=== PATIENT | female | born 1985 | race American Indian/Alaskan Native ===

== ENCOUNTER 2021-05-24 13:32 | Emergency (ER) | payer MEDICAID ==
--- NOTE | 2021-05-24 14:05 | Emergency Department Report ---
HPI - General Time Seen by Provider: 05/24/21 13:45 - HPI HPI: Room 25 The patient is a 35-year-old female present with a chief complaint of weakness. Patient has a history of cerebellar ataxia and functional quadriplegia was reportedly sent to [facility] 05/21 and 05/22/2021 with a chief complaint listed as unresponsive. However the notes state that the patient came from [facility] for constipation. Patient was evaluated and eventually discharged. The patient reportedly had a CT scan of the abdomen pelvis performed during the first visit so the ED physician documented this was not repeated for this reason. The patient was eventually discharged back to [facility]. Once she arrived at [facility] staff reports the patient was not answering questions so she was sent to this ED for evaluation. In this ED the patient initially did not respond to voice but after sternal rub the past patient awakened and answer questions. Patient states she has just had diffuse weakness for the past 3 days. Patient denies history of fever nausea or vomiting. Patient denies any other complaints ED Past Medical Hx - Past Medical History Additional medical history: Irritable bowel syndrome, cerebellar ataxia, functional quadriplegia - Surgical History Past Surgical History?: No - Family History Family history: no significant - Social History Smoking Status: Never Smoker Substance Use Type: None - Medications Home Medications: Home Medications Medication Instructions Recorded Confirmed Last Taken Type levoFLOXacin [Levaquin TAB] 500 mg PO QDAY #3 tablet 05/24/21 Unknown Rx ED Review of Systems ROS: Stated complaint: ALTERED MENTAL STATUS Other details as noted in HPI Constitutional: weakness Eyes: denies: eye pain ENT: denies: throat pain Respiratory: no symptoms reported Cardiovascular: denies: chest pain Endocrine: no symptoms reported Gastrointestinal: constipation Genitourinary: denies: dysuria Musculoskeletal: denies: back pain Neurological: denies: headache Physical Exam - Physical Exam Physical Exam: GENERAL: The patient is well-developed well-nourished []. [] HEENT: Normocephalic. Atraumatic. Extraocular motions are intact. Patient has moist mucous membranes. NECK: Supple. Trachea midline CHEST/LUNGS: Clear to auscultation. There is no respiratory distress noted. HEART/CARDIOVASCULAR: Regular. There is no tachycardia. There is no gallop rub or murmur. ABDOMEN: Abdomen is soft, nontender. Patient has normal bowel sounds. There is no abdominal distention. SKIN: There is no rash. There is no edema. There is no diaphoresis. NEURO: The patient initially does not respond to voice when given sternal rub she awakens and answers questions appropriately. The patient is cooperative. The patient has normal speech MUSCULOSKELETAL: There is no evidence of acute injury. ED Medical Decision Making - Lab Data Result diagrams: 05/24/21 14:28 05/24/21 14:28 Laboratory Tests 05/24/21 05/24/21 05/24/21 14:28 14:28 14:28 WBC 6.4 RBC 3.80 Hgb 11.4 Hct 34.2 MCV 90 MCH 30 MCHC 33 RDW 13.4 Plt Count 262 Lymph % (Auto) 46.2 H [place] % (Auto) 9.0 H Eos % (Auto) 1.8 Baso % (Auto) 0.8 Lymph # (Auto) 3.0 [place] # (Auto) 0.6 Eos # (Auto) 0.1 Baso # (Auto) 0.1 Seg Neutrophils % 42.2 Seg Neutrophils # 2.7 Sodium 137 Potassium 3.9 Chloride 104.7 Carbon Dioxide 20 L Anion Gap 16 BUN 9 Creatinine 0.6 Estimated GFR > 60 BUN/Creatinine Ratio 15 Glucose 73 Calcium 9.1 Magnesium 2.10 Total Bilirubin 0.60 AST 16 ALT 6 L Alkaline Phosphatase 73 Total Creatine Kinase 94 CK-MB (CK-2) 1.9 CK-MB (CK-2) Rel Index 2.0 Troponin T < 0.010 Total Protein 7.6 Albumin 3.7 L Albumin/Globulin Ratio 0.9 Free T4 1.30 Urine Color Urine Turbidity Urine pH Ur Specific [place] Urine Protein Urine Glucose (UA) Urine Ketones Urine Blood Urine Nitrite Urine Bilirubin Urine Urobilinogen Ur Leukocyte Esterase Urine WBC (Auto) Urine RBC (Auto) U Epithel Cells (Auto) Urine Mucus 05/24/21 Unknown WBC RBC Hgb Hct MCV MCH MCHC RDW Plt Count Lymph % (Auto) [place] % (Auto) Eos % (Auto) Baso % (Auto) Lymph # (Auto) [place] # (Auto) Eos # (Auto) Baso # (Auto) Seg Neutrophils % Seg Neutrophils # Sodium Potassium Chloride Carbon Dioxide Anion Gap BUN Creatinine Estimated GFR BUN/Creatinine Ratio Glucose Calcium Magnesium Total Bilirubin AST ALT Alkaline Phosphatase Total Creatine Kinase CK-MB (CK-2) CK-MB (CK-2) Rel Index Troponin T Total Protein Albumin Albumin/Globulin Ratio Free T4 Urine Color Yellow Urine Turbidity Clear Urine pH 6.0 Ur Specific [place] 1.014 Urine Protein <15 mg/dl Urine Glucose (UA) Neg Urine Ketones Neg Urine Blood Neg Urine Nitrite Pos Urine Bilirubin Neg Urine Urobilinogen < 2.0 Ur Leukocyte Esterase Sm Urine WBC (Auto) 8.0 H Urine RBC (Auto) 2.0 U Epithel Cells (Auto) 1.0 Urine Mucus Few - EKG Data -: EKG Interpreted by Me EKG shows normal: sinus rhythm Rate: normal - EKG Data When compared to previous EKG there are: previous EKG unavailable Interpretation: normal EKG, other (No ischemic changes seen) - Differential Diagnosis Symptomatic anemia, dehydration, electrolyte imbalance, rhabdomyolysis, hyp Critical care attestation.: If time is entered above; I have spent that time in minutes in the direct care of this critically ill patient, excluding procedure time. ED Disposition Clinical Impression: UTI (urinary tract infection), Fatigue Disposition: TO HOME OR SELFCARE Is pt being admited?: No Does the pt Need Aspirin: No Condition: Stable Instructions: Urinary Tract Infection, Adult, [id number] Additional Instructions: Return to the emergency department should you develop worsening symptoms, inability to tolerate food or liquids, high fever or any other concerns Prescriptions: levoFLOXacin [Levaquin TAB] 500 mg PO QDAY #3 tablet Time of Disposition: 16:45
[2021-05-24 14:50] LABS: Bilirubin,Urine NEG (Negative); Blood,Urine NEG (Negative); Color,Urine Yellow (Yellow); Mucus,Urine FEW /HPF; Protein,Urine <15 mg/dL mg/dL (Negative); Urobilinogen,Urine < 2.0 mg/dL (<2.0)
[2021-05-24 15:10] LABS: Basophils # (Auto) 0.1 K/mm3 (0.0-0.1); Basophils % (Auto) 0.8 % (0.0-1.8); Eosinophils # (Auto) 0.1 K/mm3 (0.0-0.4); Eosinophils % (Auto) 1.8 % (0.0-4.3); Hematocrit 34.2 % (30.3-42.9); Hemoglobin 11.4 gm/dl (10.1-14.3); Lymphocytes % (Auto) 46.2 % (13.4-35.0); Mean Corpuscular HGB Conc 33 % (30-34); Mean Corpuscular Volume 90 fl (79-97); Monocytes # (Auto) 0.6 K/mm3 (0.0-0.8); Platelet Count 262 K/mm3 (140-440); Red Cell Distribution Width 13.4 % (13.2-15.2)
[2021-05-24 15:34] LABS: Creatine Kinase MB 1.9 ng/mL (0.0-4.0)
[2021-05-24 15:35] LABS: Alanine Aminotransferase 6 units/L (7-56); Albumin 3.7 g/dL (3.9-5); Blood Urea Nitrogen 9 mg/dL (7-17); Calcium 9.1 mg/dL (8.4-10.2); Hemolysis Index 25
[2021-05-24 15:40] LABS: BUN/Creatinine Ratio 15
[2021-05-24 16:29] LABS: Free T4 (Free Thyroxine) 1.3 ng/dL (0.76-1.46)
[2021-05-24 18:46] VITALS: BP 98/67
--- NOTE | 2021-05-25 12:27 | Electrocardiograph Report ---
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
== END 2021-05-24 20:30 | disposition home or self-care (01) ==
LOC: ED 13:32
DX: N39.0 Urinary tract infection, site not specified (principal); R53.83 Other fatigue; Z79.2 Long term (current) use of antibiotics
CPT/HCPCS: 36415; 80053; 81001; 82550; 82553; 83735; 84439; 84443; 84484; 85025; 93005

== ENCOUNTER 2021-06-26 15:10 | Emergency (ER) | payer MEDICAID ==
--- NOTE | 2021-06-26 20:06 | Event Note ---
Date: 06/26/21 The patient was evaluated in the emergency department for symptoms described in the history of present illness. He/she was evaluated in the context of the global COVID-19 pandemic, which necessitated consideration that the patient might be at risk for infection with the virus that causes COVID-19. Institutional protocols and algorithms that pertain to the evaluation of patients at risk for COVID-19 are in a state of rapid change based on information released by regulatory bodies including the CDC and federal and state organizations. These policies and algorithms were followed during the patient's care in the emergency department. Please note that these policies, procedures and recommendations changed on a rapid basis. Medical screening examination: Primary CARE doctor: Dr. Mojica The patient is a 35-year-old female. She is referred to the emergency room by her local halfway for evaluation after a fall 2 days ago. The patient is a functional quadriplegic, has a history of cerebral palsy, dysphagia, and has a history of falling. Home medications include amantadine, Protostat AWC liquid, Toviaz, multivitamin, paroxetine, thiamine, Zofran as needed, she has an indwelling midline, and also distant history of calculus of the kidney. She was seen in this hospital last month, had laboratory studies including liver panel and TSH which were unremarkable, urinalysis that suggest a urinary tract infection and was discharged on Levaquin. She was sent to the emergency room today because she had a fall 2 days ago, re portedly hit her head, and outpatient team has been unable to obtain skull series. She is thus referred to the emergency room for diagnostic imaging. The patient is nonverbal. The patient is awake. The patient does not appear to be in any acute distress. Apparently, she has been having jerking movements to all extremities, and these movements have prohibited acquisition of skull series. In the emergency room, no jerky movements are noted. Patient not accompanied by friends or family at this time for collateral information or additional information. She is nonverbal and does not describe exacerbating, relieving factors or aggravating factors. Obtain CT scan of brain and cervical spine. Obtain urinalysis, EKG, and appropriate laboratory studies. Observe patient. Reassess after initial diagnostics.
[2021-06-26 20:36] LABS: Hematocrit 31.7 % (30.3-42.9); Hemoglobin 10.2 gm/dl (10.1-14.3); Mean Corpuscular HGB Conc 32 % (30-34); Mean Corpuscular Volume 93 fl (79-97); Platelet Count 342 K/mm3 (140-440); Red Blood Count 3.41 M/mm3 (3.65-5.03); Red Cell Distribution Width 13.1 % (13.2-15.2)
[2021-06-26 20:38] LABS: Blood Urea Nitrogen 11 mg/dL (7-17); Calcium 9.2 mg/dL (8.4-10.2); Hemolysis Index 9
[2021-06-26 20:55] LABS: BUN/Creatinine Ratio 16
--- NOTE | 2021-06-26 21:04 | Cat Scan Report ---
CT HEAD WITHOUT CONTRAST INDICATION / CLINICAL INFORMATION: Fall, Altered Mental Status. TECHNIQUE: All CT scans at this location are performed using CT dose reduction for ALARA by means of automated exposure control. COMPARISON: None available. FINDINGS: No acute intracranial hemorrhage, mass effect or edema. No hydrocephalus. The paranasal sinuses and mastoid air cells are clear. Calvarium is intact. IMPRESSION: 1. No acute intracranial abnormality. Signer Name: Ventura Law MD Signed: 06/26/2021 8:59 PM Workstation Name: [id number]
--- NOTE | 2021-06-26 21:09 | Cat Scan Report ---
CT CERVICAL SPINE WITHOUT CONTRAST INDICATION: Fall, Altered Mental Status. TECHNIQUE: Axial CT images of the spine were obtained. Sagittal and coronal reformatted images were produced. Al l CT scans at this location are performed using CT dose reduction for ALARA by means of automated exp osure control. COMPARISON: None available. FINDINGS: ACUTE FRACTURE(S) OR SUBLUXATION: None. SPINAL DEGENERATIVE CHANGES: No significant degenerative changes. PARASPINAL SOFT TISSUES: No soft tissue swelling or other acute abnormalities. ADDITIONAL FINDINGS: No significant additional findings. IMPRESSION: 1. No acute fracture or subluxation in the spine in neutral position. Signer Name: Jhonatan Verma MD Signed: 06/26/2021 9:04 PM Workstation Name: [id number]
--- NOTE | 2021-06-26 21:21 | Emergency Department Report ---
ED General Adult HPI - General Chief complaint: Medical Clearance Stated complaint: medical clearance Time Seen by Provider: 06/26/21 21:21 Source: patient, EMS ( EMS documentation not available at time of chart dictation ), RN notes reviewed Mode of arrival: Stretcher Limitations: Physical Limitation - History of Present Illness Initial comments: The patient was evaluated in the emergency department for symptoms described in the history of present illness. He/she was evaluated in the context of the global COVID-19 pandemic, which necessitated consideration that the patient might be at risk for infection with the virus that causes COVID-19. Inst itutional protocols and algorithms that pertain to the evaluation of patients at risk for COVID-19 are in a state of rapid change based on information released by regulatory bodies including the CDC and federal and state organizations. These policies and algorithms were followed during the patient's care in the emergency department. Please note that these policies, procedures and recommendations changed on a rapid basis. Primary CARE doctor: Dr. Rod Plasencia The patient is a 35-year-old female with a past medical history of cerebral palsy, functional quadriplegia, and frequent falls. She is referred to this emergency room for diagnostic testing by her intermediate. As per verbal report from [employer], patient had a fall on the , uncertain if witnessed or not, outpatient team attempted to obtain skull series and diagnostic x-rays, but were not successful because the patient had jerking movements consistent with her known history of cerebral palsy. She was thus referred to the emergency room. The patient denies headache, neck pain, chest pain, abdominal pain, shortness of breath. She complains of left thigh pain. She denies additional injuries and complaints. -: days(s) - Related Data Previous Rx's Medication Instructions Recorded Last Taken Type levoFLOXacin [Levaquin TAB] 500 mg PO QDAY #3 tablet 05/24/21 Unknown Rx Allergies Allergy/AdvReac Type Severity Reaction Status Date / Time No Known Allergies Allergy Unverified 05/24/21 13:57 ED Review of Systems ROS: Stated complaint: FALL/JERKING MOVEMENTS Other details as noted in HPI Constitutional: denies: fever Respiratory: denies: cough Cardiovascular: denies: chest pain Musculoskeletal: myalgia ED Past Medical Hx - Past Medical History Previous Medical History?: Yes Additional medical history: Irritable bowel syndrome, cerebellar ataxia, functional quadriplegia - Social History Smoking Status: Never Smoker Substance Use Type: None - Medications Home Medications: Home Medications Medication Instructions Recorded Confirmed Last Taken Type levoFLOXacin [Levaquin TAB] 500 mg PO QDAY #3 tablet 05/24/21 Unknown Rx ED Physical Exam - General Limitations: Physical Limitation General appearance: in no apparent distress - Head Head exam: Present: atraumatic, normocephalic - Eye Eye exam: Present: normal appearance, PERRL, EOMI - ENT ENT exam: Present: normal exam, normal orophraynx, mucous membranes dry, normal external ear exam - Neck Neck exam: Present: normal inspection. Absent: tenderness, meningismus - Respiratory Respiratory exam: Present: normal lung sounds bilaterally, decreased breath sounds. Absent: respiratory distress, wheezes, rales, rhonchi, stridor - Cardiovascular Cardiovascular Exam: Present: regular rate, normal rhythm, normal heart sounds. Absent: bradycardia, tachycardia, irregular rhythm, systolic murmur, diastolic murmur, rubs, gallop - GI/Abdominal GI/Abdominal exam: Present: soft. Absent: distended, tenderness, guarding, rebound, rigid, pulsatile mass - Rectal Rectal exam: Present: normal inspection, other (Chaperoned by nurse Malone) - Extremities Exam Extremities exam: Present: normal inspection (Right upper extremity midline noted, without redness, pus or streaking), other (2+ pulses noted in the bilateral upper and lower extremities. There is no palpable cord. negative Homans sign. Muscular compartments are soft. The pelvis is stable.). Absent: pedal edema, calf tenderness - Back Exam Back exam: Present: normal inspection. Absent: tenderness, CVA tenderness (R), CVA tenderness (L), paraspinal tenderness, vertebral tenderness - Neurological Exam Neurological exam: Present: alert (The patient is awake to name. The patient follows commands.), other (There is no facial droop. EOMI. Tongue midline. Moves 4 extremities spontaneously.) - Psychiatric Psychiatric exam: Present: flat affect - Skin Skin exam: Present: warm, dry, intact, normal color. Absent: rash ED Course Vital Signs 06/26/21 21:48 Temperature 97.9 F Pulse Rate 89 Respiratory 18 Rate Blood Pressure 101/62 [Left] O2 Sat by Pulse 97 Oximetry ED Medical Decision Making - Lab Data Result diagrams: 06/26/21 20:05 06/26/21 20:05 Vital Signs 06/26/21 21:48 Temperature 97.9 F Pulse Rate 89 Respiratory 18 Rate Blood Pressure 101/62 [Left] O2 Sat by Pulse 97 Oximetry Lab Results 06/26/21 06/26/21 06/26/21 Range/Units 20:05 20:05 20:05 WBC 7.6 (4.5-11.0) K/mm3 RBC 3.41 L (3.65-5.03) M/mm3 Hgb 10.2 (10.1-14.3) gm/dl Hct 31.7 (30.3-42.9) % MCV 93 (79-97) fl MCH 30 (28-32) pg MCHC 32 (30-34) % RDW 13.1 L (13.2-15.2) % Plt Count 342 (140-440) K/mm3 Sodium 136 L (137-145) mmol/L Potassium 4.4 (3.6-5.0) mmol/L Chloride 101.6 (98-107) mmol/L Carbon Dioxide 25 (22-30) mmol/L Anion Gap 14 mmol/L BUN 11 (7-17) mg/dL Creatinine 0.7 (0.6-1.2) mg/dL Estimated GFR > 60 ml/min BUN/Creatinine Ratio 16 % Glucose 77 (65-100) mg/dL Calcium 9.2 (8.4-10.2) mg/dL Magnesium 2.10 (1.7-2.3) mg/dL Total Creatine Kinase 152 H (30-135) units/L Urine Color (Yellow) Urine Turbidity (Clear) Urine pH (5.0-7.0) Ur Specific [place] (1.003-1.030) Urine Protein (Negative) mg/dL Urine Glucose (UA) (Negative) mg/dL Urine Ketones (Negative) mg/dL Urine Blood (Negative) Urine Nitrite (Negative) Urine Bilirubin (Negative) Urine Urobilinogen (<2.0) mg/dL Ur Leukocyte Esterase (Negative) Urine WBC (Auto) (0.0-6.0) /HPF Urine RBC (Auto) (0.0-6.0) /HPF U Epithel Cells (Auto) (0-13.0) /HPF Urine Mucus /HPF Plasma/Serum Alcohol < 0.01 (0-0.07) % 06/26/21 Range/Units 21:42 WBC (4.5-11.0) K/mm3 RBC (3.65-5.03) M/mm3 Hgb (10.1-14.3) gm/dl Hct (30.3-42.9) % MCV (79-97) fl MCH (28-32) pg MCHC (30-34) % RDW (13.2-15.2) % Plt Count (140-440) K/mm3 Sodium (137-145) mmol/L Potassium (3.6-5.0) mmol/L Chloride (98-107) mmol/L Carbon Dioxide (22-30) mmol/L Anion Gap mmol/L BUN (7-17) mg/dL Creatinine (0.6-1.2) mg/dL Estimated GFR ml/min BUN/Creatinine Ratio % Glucose (65-100) mg/dL Calcium (8.4-10.2) mg/dL Magnesium (1.7-2.3) mg/dL Total Creatine Kinase (30-135) units/L Urine Color Yellow (Yellow) Urine Turbidity Clear (Clear) Urine pH 5.0 (5.0-7.0) Ur Specific [place] 1.019 (1.003-1.030) Urine Protein <15 mg/dl (Negative) mg/dL Urine Glucose (UA) Neg (Negative) mg/dL Urine Ketones Neg (Negative) mg/dL Urine Blood Neg (Negative) Urine Nitrite Neg (Negative) Urine Bilirubin Neg (Negative) Urine Urobilinogen 2.0 (<2.0) mg/dL Ur Leukocyte Esterase Neg (Negative) Urine WBC (Auto) 3.0 (0.0-6.0) /HPF Urine RBC (Auto) 17.0 (0.0-6.0) /HPF U Epithel Cells (Auto) 1.0 (0-13.0) /HPF Urine Mucus 1+ /HPF Plasma/Serum Alcohol (0-0.07) % - EKG Data -: EKG Interpreted by In EKG shows normal: sinus rhythm Rate: normal - EKG Data When compared to previous EKG there are: previous EKG unavailable 06/26/21 22:35 EKG is interpreted at 21: 11 Sinus rhythm, 72 bpm. Normal axis, normal P wave axis. QTC 410 ms. [place] interval 201 ms. This is an abnormal EKG. This is not a STEMI. There is no prior for comparison. - Radiology Data Radiology results: pending, report reviewed, image reviewed CT HEAD WITHOUT CONTRAST INDICATION / CLINICAL INFORMATION: Fall, Altered Mental Status. TECHNIQUE: All CT scans at this location are performed using CT dose reduction for ALARA by means of automated exposure control. COMPARISON: None available. FINDINGS: No acute intracranial hemorrhage, mass effect or edema. No hydrocephalus. The paranasal sinuses and mastoid air cells are clear. Calvarium is intact. IMPRESSION: 1. No acute intracranial abnormality. Signer Name: Ventura Law MD Signed: 06/26/2021 7:[address] CERVICAL SPINE WITHOUT CONTRAST INDICATION: Fall, Altered Mental Status. TECHNIQUE: Axial CT images of the spine were obtained. Sagittal and coronal reformatted images were produced. All CT scans at this location are performed using CT dose reduction for ALARA by means of automated exposure control. COMPARISON: None available. FINDINGS: ACUTE FRACTURE(S) OR SUBLUXATION: None. SPINAL DEGENERATIVE CHANGES: No significant degenerative changes. PARASPINAL SOFT TISSUES: No soft tissue swelling or other acute abnormalities. ADDITIONAL FINDINGS: No significant additional findings. IMPRESSION: 1. No acute fracture or subluxation in the spine in neutral position. Signer Name: Jhonatan Verma MD Signed: 06/26/2021 8:04 PM Workstation Name: [id number] - Medical Decision Making Differential diagnosis, including but not limited to: Fall, closed head injury, cervical spine injury, electrolyte derangement, cerebral palsy, concussion, urinary tract infection Assessment and plan: 35-year-old female who is afebrile with reassuring vital signs who presents approximately 48 hours after fall and possible closed head injury. She is awake, follows commands, is protecting her airway. Her external physical examination appears to be unremarkable and appears to be similar to what is documented on her previous examination. A noncontrast CT scan of the brain and cervical spine were negative for acute traumatic findings, laboratory studies and EKG were unremarkable, urinalysis nonactionable. Patient is observed in this department for hours without clinical decompensation, or any witnessed convulsive event or jerking event. She does not appear to have an emergent medical condition present at this time and will be discharged back to her intermediate. Critical care attestation.: If time is entered above; I have spent that time in minutes in the direct care of this critically ill patient, excluding procedure time. ED Disposition Clinical Impression: Fall, Cerebral palsy, Encounter for medical screening examination Disposition: [facility] Is pt being admited?: No Does the pt Need Aspirin: No Condition: Good Additional Instructions: Please continue current outpatient medications. Please make certain to enact fall precautions at this patient's care facility. Patient had laboratory st udies and CT scan of the brain and cervical spine today, in addition to an EKG, which did not demonstrate any emergent findings. Urine cultures were sent today, and results will be available in the next 5 to 7 days. Please have your primary care doctor contact the medical records department to obtain copies of laboratory studies, culture results, and radiology studies. Please return to the emergency room right away with new pain, worsened pain, migration of pain, change in mental status, confusion, inability to tolerate liquid feeds, new, worsened or different symptoms not present on the initial emergency room evaluation. Recommend the patient follow-up with her primary care physician within the next 3 to 5 days. Referrals: ROD PLASENCIA MD [Primary Care Provider] - 3-5 Days
[2021-06-26 22:02] LABS: Bilirubin,Urine NEG (Negative); Blood,Urine NEG (Negative); Color,Urine Yellow (Yellow); Mucus,Urine 1+ /HPF; Protein,Urine <15 mg/dL mg/dL (Negative)
[2021-06-27 08:09] VITALS: BP 103/67
--- NOTE | 2021-06-27 10:22 | Electrocardiograph Report ---
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
== END 2021-06-27 11:15 ==
LOC: ED 15:10
DX: G80.9 Cerebral palsy, unspecified (principal); W19.XXXA Unspecified fall, initial encounter; Z91.81 History of falling; Y93.89 Activity, other specified; Y92.89 Other specified places as the place of occurrence of the external cause; Y99.8 Other external cause status
CPT/HCPCS: 36415; 70450; 72125; 80048; 80320; 81001; 82550; 83735; 85027; 87086; 93005; 99284; G0480

== ENCOUNTER 2022-01-11 21:37 | Emergency (ER) | payer MEDICAID ==
[2022-01-11] MEDS ORDERED: SODIUM CHLORIDE 0.9% 500 ML 500 ML IV ONE (22:58)
[2022-01-11] MEDS ORDERED: ONDANSETRON 4 MG/2 ML INJ IV ONE (22:59)
[2022-01-11] MEDS ORDERED: FAMOTIDINE 20 MG/2 ML INJ IV ONE (22:59)
[2022-01-11 23:45] LABS: Basophils % (Auto) 0.6 % (0.0-1.8); Eosinophils # (Auto) 0.1 K/mm3 (0.0-0.4); Eosinophils % (Auto) 2.2 % (0.0-4.3); Hemoglobin 13.3 gm/dl (10.1-14.3); Lymphocytes # (Auto) 2.3 K/mm3 (1.2-5.4); Lymphocytes % (Auto) 35.6 % (13.4-35.0); Mean Corpuscular HGB Conc 35 % (30-34); Mean Corpuscular Volume 89 fl (79-97); Monocytes # (Auto) 0.6 K/mm3 (0.0-0.8); Monocytes % (Auto) 8.5 % (0.0-7.3); Platelet Count 270 K/mm3 (140-440); Red Blood Count 4.25 M/mm3 (3.65-5.03); Red Cell Distribution Width 12.6 % (13.2-15.2)
[2022-01-11 23:53] LABS: Alanine Aminotransferase 9 units/L (7-56); Albumin 4.1 g/dL (3.9-5); BUN/Creatinine Ratio 21; Blood Urea Nitrogen 17 mg/dL (7-17); Calcium 9.7 mg/dL (8.4-10.2); Hemolysis Index 4
[2022-01-11 23:55] LABS: INR 0.94 (0.87-1.13)
[2022-01-11 23:56] LABS: Partial Thromboplastin Time 31.1 Sec. (24.2-36.6)
--- NOTE | 2022-01-12 00:08 | Cat Scan Report ---
CT HEAD WITHOUT CONTRAST INDICATION / CLINICAL INFORMATION: Altered Mental Status. TECHNIQUE: CT of the head was performed without administration of intravenous contrast. All CT scans at this location are performed using CT dose reduction for ALARA by means of automated exposure contr ol. COMPARISON: CT head 06/26/2021 FINDINGS: CEREBRAL PARENCHYMA: Generalized cortical and central atrophy. Periventricular regions of white matte r hypoattenuation compatible with microvascular ischemia. HEMORRHAGE: None. EXTRA-AXIAL SPACES: Normal in size and morphology for the patient's age. VENTRICULAR SYSTEM: Normal in size and morphology for the patient's age. MIDLINE SHIFT / HERNIATION: None. CEREBELLUM / BRAINSTEM: No significant abnormality. ORBITS: Normal as visualized. SOFT TISSUES: No significant abnormality. SKULL: No significant abnormality. PARANASAL SINUSES / MASTOID AIR CELLS: Normal as visualized. ADDITIONAL FINDINGS: Bilateral deformities of the mandibular condyles compatible with chronic degener ative change subarticular cystic change is present. IMPRESSION: 1. No acute intracranial abnormality. Signer Name: Dagoberto Whatley II, MD Signed: 01/12/2022 12:04 AM Workstation Name: [id number]
--- NOTE | 2022-01-12 00:11 | Cat Scan Report ---
CT ABDOMEN AND PELVIS WITHOUT CONTRAST INDICATION / CLINICAL INFORMATION: Abdominal distention, pain, not eating or drinking. TECHNIQUE: Axial CT images were obtained through the abdomen and pelvis without IV contrast. All CT scans at this location are performed using CT dose reduction for ALARA by means of automated exposure control. COMPARISON: None available. FINDINGS: LOWER CHEST: No significant abnormality of the imaged chest. LIVER: No significant abnormality. GALLBLADDER: No significant abnormality. BILE DUCTS: No significant abnormality. SPLEEN: No significant abnormality. PANCREAS: Not well visualized secondary to lack of intravenous contrast. No gross evidence of acute p athology. ADRENALS: No significant abnormality. RIGHT KIDNEY / URETER: Findings suggesting medullary nephrocalcinosis. No hydronephrosis. LEFT KIDNEY / URETER: Findings suggesting medullary nephrocalcinosis. Additional more focal calcifica tion lower pole left kidney thought to reflect nonobstructing calyceal stone. This measures approxima tely 9 mm. STOMACH / DUODENUM / SMALL BOWEL: Stomach is grossly unremarkable. No small bowel obstruction. COLON: Large amount stool throughout the large bowel. Large fecal impaction. APPENDIX: Not identified PERITONEUM: No free air or free fluid are present within the abdomen or pelvis. LYMPH NODES: No significant adenopathy. AORTA / ARTERIES: No significant abnormality. IVC / VEINS: No significant abnormality. URINARY BLADDER: No significant abnormality. REPRODUCTIVE ORGANS: Possible small right ovarian cyst versus nonopacified bowel loop. ADDITIONAL ABDOMINAL/PELVIC FINDINGS: None. SKELETAL SYSTEM: No significant abnormality. IMPRESSION: 1. A large stool burden is present throughout the large bowel with large fecal impaction additionally present. Signer Name: Dagoberto Whatley II, MD Signed: 01/12/2022 12:06 AM Workstation Name: [id number]
--- NOTE | 2022-01-12 00:25 | XRay Report ---
CHEST 1 VIEW INDICATION / CLINICAL INFORMATION: Altered Mental Status. COMPARISON: None available. FINDINGS: SUPPORT DEVICES: None. HEART / MEDIASTINUM: No significant abnormality. LUNGS / PLEURA: The lungs are clear. No pneumothorax. ADDITIONAL FINDINGS: No significant additional findings. IMPRESSION: 1. No active cardiopulmonary disease. Signer Name: Dagoberto Whatley II, MD Signed: 01/12/2022 12:20 AM Workstation Name: [id number]
--- NOTE | 2022-01-12 00:34 | Emergency Department Report ---
ED General Adult HPI - General Chief complaint: Abdominal Pain Stated complaint: GENERAL WEAKNESS Time Seen by Provider: 01/11/22 22:51 Source: patient, EMS (Verbal report received from emergency medical services. EMS documentation not available at time of chart dictation ), RN notes reviewed, old records reviewed Mode of arrival: Stretcher Limitations: Physical Limitation, Other (Patient is a poor historian) - History of Present Illness Initial comments: The patient is a 36-year-old female. Her primary care doctor is Dr. Rod Mojica. She has a history of falling, functional quadriplegia, constipation, dysphagia. The patient is referred to the emergency room by her local shelter. The patient herself indicates abdominal cramping and sensation of constipation. The patient is a poor historian. As per EMS, they report that shelter called 911 because the patient has been spitting up food for the past 2 to 3 days. They also reported that the patient was not behaving at her baseline. The patient herself endorses that she would like to eat applesauce and food here in the emergency room -: days(s) - Related Data Previous Rx's Medication Instructions Recorded Last Taken Type Lactulose [Cephulac] 20 gm PO QDAY PRN 4 Days #100 ml 01/12/22 Unknown Rx Nitrofurantoin Bingham/M-Cryst 100 mg PO Q12HR #13 capsule 01/12/22 Unknown Rx [Macrobid CAP] polyethylene glycoL 3350 [Miralax 17 gm PO QDAY #30 packet 01/12/22 Unknown Rx 3350] Allergies Allergy/AdvReac Type Severity Reaction Status Date / Time No Known Allergies Allergy Unverified 05/24/21 13:57 ED Review of Systems ROS: Stated complaint: GENERAL WEAKNESS Other details as noted in HPI Constitutional: denies: fever Respiratory: denies: cough Cardiovascular: denies: syncope Gastrointestinal: abdominal pain, constipation Neurological: weakness ED Past Medical Hx - Past Medical History Previous Medical History?: Yes Additional medical history: Irritable bowel syndrome, cerebellar ataxia, functional quadriplegia - Surgical History Past Surgical History?: No - Social History Smoking Status: Never Smoker Substance Use Type: None - Medications Home Medications: Home Medications Medication Instructions Recorded Confirmed Last Taken Type Lactulose [Cephulac] 20 gm PO QDAY PRN 4 Days #100 ml 01/12/22 Unknown Rx Nitrofurantoin Bingham/M-Cryst 100 mg PO Q12HR #13 capsule 01/12/22 Unknown Rx [Macrobid CAP] polyethylene glycoL 3350 [Miralax 17 gm PO QDAY #30 packet 01/12/22 Unknown Rx 3350] ED Physical Exam - General Limitations: Physical Limitation, Other (Patient is a poor historian.) General appearance: in no apparent distress, anxious - Head Head exam: Present: atraumatic, normocephalic - Eye Eye exam: Present: normal appearance, EOMI. Absent: nystagmus - ENT ENT exam: Present: mucous membranes dry, normal external ear exam - Neck Neck exam: Present: normal inspection, full ROM. Absent: tenderness, meningismus - Respiratory Respiratory exam: Present: normal lung sounds bilaterally. Absent: respiratory distress, wheezes, rales, rhonchi, stridor, decreased breath sounds - Cardiovascular Cardiovascular Exam: Present: regular rate, normal rhythm, normal heart sounds. Absent: bradycardia, tachycardia, irregular rhythm, systolic murmur, diastolic murmur, rubs, gallop - GI/Abdominal GI/Abdominal exam: Present: soft, tenderness, other (There is mild diffuse abdominal tender). Absent: distended, guarding, rebound, rigid, pulsatile mass - Extremities Exam Extremities exam: Present: normal inspection, other (2+ pulses noted in the bilateral upper and lower extremities. There is no palpable cord. negative Homans sign. Muscular compartments are soft. The pelvis is stable.). Absent: calf tenderness - Back Exam Back exam: Present: normal inspection. Absent: tenderness - Neurological Exam Neurological exam: Present: alert (The patient is awake. The patient moves 4 extremities. Patient will answer yes/no questions), reflexes normal - Psychiatric Psychiatric exam: Present: normal affect, normal mood - Skin Skin exam: Present: warm, dry, intact, normal color. Absent: rash ED Course Vital Signs 01/11/22 01/12/22 01/12/22 22:31 01:00 01:07 Temperature 98 F 98.1 F Pulse Rate 86 84 Respiratory 18 18 Rate Blood Pressure 107/78 Blood Pressure 109/78 [Left] O2 Sat by Pulse 100 98 99 Oximetry - Reevaluation(s) Reevaluation #1: 01/12/22 00:34 Differential diagnosis, including not limited to: Cerebral palsy, constipation, intracranial lesion/hemorrhage, pneumonia, UTI, electrolyte derangement, obstru ction Assessment and plan: 36-year-old female with cerebral palsy, who is a poor historian, with a report of not eating food and spitting up, who is currently here, cooperative, eating applesauce, passed her swallow screen, neurologic exam appears to be essentially unchanged when compared to prior neurologic examinations, laboratory studies unremarkable, CT scan of the brain negative for acute findings, CT scan abdomen pelvis shows constipation and possible fecal impaction, but otherwise no acute findings. Patient articulates nursing team that she would like to consume pured foods, and not applesauce. This suggests appropriately functioning cognitive skills. Constipation may be treated with diet lifestyle modifications, we can discharge with MiraLAX, as well as one-time dose of lactulose. Urinalysis is pending at this time. There may be a behavioral component here as well However, the patient has not endorsed HI SI. 01/12/22 01:26 Patient in no acute distress. Catheterized urine sample suggestive of urinary tract infection. Cultures pending. Macrobid ordered. Discharged with outpatient follow-up ED Medical Decision Making - Lab Data Result diagrams: 01/11/22 23:10 01/11/22 23:10 Vital Signs 01/11/22 22:31 Temperature 98 F Pulse Rate 86 Respiratory 18 Rate Blood Pressure 107/78 O2 Sat by Pulse 100 Oximetry Lab Results 01/11/22 01/11/22 01/11/22 Range/Units 23:10 23:10 23:10 WBC 6.6 (4.5-11.0) K/mm3 RBC 4.25 (3.65-5.03) M/mm3 Hgb 13.3 (10.1-14.3) gm/dl Hct 38.0 (30.3-42.9) % MCV 89 (79-97) fl MCH 31 (28-32) pg MCHC 35 H (30-34) % RDW 12.6 L (13.2-15.2) % Plt Count 270 (140-440) K/mm3 Lymph % (Auto) 35.6 H (13.4-35.0) % Bingham % (Auto) 8.5 H (0.0-7.3) % Eos % (Auto) 2.2 (0.0-4.3) % Baso % (Auto) 0.6 (0.0-1.8) % Lymph # (Auto) 2.3 (1.2-5.4) K/mm3 Bingham # (Auto) 0.6 (0.0-0.8) K/mm3 Eos # (Auto) 0.1 (0.0-0.4) K/mm3 Baso # (Auto) 0.0 (0.0-0.1) K/mm3 Seg Neutrophils % 53.1 (40.0-70.0) % Seg Neutrophils # 3.5 (1.8-7.7) K/mm3 PT (12.2-14.9) Sec. INR (0.87-1.13) APTT (24.2-36.6) Sec. Sodium 139 (137-145) mmol/L Potassium 4.9 (3.6-5.0) mmol/L Chloride 102.7 (98-107) mmol/L Carbon Dioxide 26 (22-30) mmol/L Anion Gap 15 mmol/L BUN 17 (7-17) mg/dL Creatinine 0.8 (0.6-1.2) mg/dL Estimated GFR > 60 ml/min BUN/Creatinine Ratio 21 % Glucose 84 (65-100) mg/dL Lactic Acid 1.30 (0.7-2.0) mmol/L Calcium 9.7 (8.4-10.2) mg/dL Magnesium (1.7-2.3) mg/dL Total Bilirubin 0.60 (0.1-1.2) mg/dL AST 20 (5-40) units/L ALT 9 (7-56) units/L Alkaline Phosphatase 95 (35-129) units/L Ammonia (25-60) umol/L Total Creatine Kinase (30-135) units/L Troponin T (0.00-0.029) ng/mL Total Protein 8.6 H (6.3-8.2) g/dL Albumin 4.1 (3.9-5) g/dL Albumin/Globulin Ratio 0.9 % TSH (0.270-4.200) mlU/mL Salicylates (2.8-20.0) mg/dL Acetaminophen (10.0-30.0) ug/mL Plasma/Serum Alcohol (0-0.07) % 01/11/22 01/11/22 01/11/22 Range/Units 23:10 23:10 23:10 WBC (4.5-11.0) K/mm3 RBC (3.65-5.03) M/mm3 Hgb (10.1-14.3) gm/dl Hct (30.3-42.9) % MCV (79-97) fl MCH (28-32) pg MCHC (30-34) % RDW (13.2-15.2) % Plt Count (140-440) K/mm3 Lymph % (Auto) (13.4-35.0) % Bingham % (Auto) (0.0-7.3) % Eos % (Auto) (0.0-4.3) % Baso % (Auto) (0.0-1.8) % Lymph # (Auto) (1.2-5.4) K/mm3 Bingham # (Auto) (0.0-0.8) K/mm3 Eos # (Auto) (0.0-0.4) K/mm3 Baso # (Auto) (0.0-0.1) K/mm3 Seg Neutrophils % (40.0-70.0) % Seg Neutrophils # (1.8-7.7) K/mm3 PT 13.6 (12.2-14.9) Sec. INR 0.94 (0.87-1.13) APTT 31.1 (24.2-36.6) Sec. Sodium (137-145) mmol/L Potassium (3.6-5.0) mmol/L Chloride (98-107) mmol/L Carbon Dioxide (22-30) mmol/L Anion Gap mmol/L BUN (7-17) mg/dL Creatinine (0.6-1.2) mg/dL Estimated GFR ml/min BUN/Creatinine Ratio % Glucose (65-100) mg/dL Lactic Acid (0.7-2.0) mmol/L Calcium (8.4-10.2) mg/dL Magnesium 2.20 (1.7-2.3) mg/dL Total Bilirubin (0.1-1.2) mg/dL AST (5-40) units/L ALT (7-56) units/L Alkaline Phosphatase (35-129) units/L Ammonia 12.0 L (25-60) umol/L Total Creatine Kinase 110 (30-135) units/L Troponin T < 0.010 (0.00-0.029) ng/mL Total Protein (6.3-8.2) g/dL Albumin (3.9-5) g/dL Albumin/Globulin Ratio % TSH (0.270-4.200) mlU/mL Salicylates (2.8-20.0) mg/dL Acetaminophen (10.0-30.0) ug/mL Plasma/Serum Alcohol (0-0.07) % 01/11/22 01/11/22 01/11/22 Range/Units 23:10 23:10 23:10 WBC (4.5-11.0) K/mm3 RBC (3.65-5.03) M/mm3 Hgb (10.1-14.3) gm/dl Hct (30.3-42.9) % MCV (79-97) fl MCH (28-32) pg MCHC (30-34) % RDW (13.2-15.2) % Plt Count (140-440) K/mm3 Lymph % (Auto) (13.4-35.0) % Bingham % (Auto) (0.0-7.3) % Eos % (Auto) (0.0-4.3) % Baso % (Auto) (0.0-1.8) % Lymph # (Auto) (1.2-5.4) K/mm3 Bingham # (Auto) (0.0-0.8) K/mm3 Eos # (Auto) (0.0-0.4) K/mm3 Baso # (Auto) (0.0-0.1) K/mm3 Seg Neutrophils % (40.0-70.0) % Seg Neutrophils # (1.8-7.7) K/mm3 PT (12.2-14.9) Sec. INR (0.87-1.13) APTT (24.2-36.6) Sec. Sodium (137-145) mmol/L Potassium (3.6-5.0) mmol/L Chloride (98-107) mmol/L Carbon Dioxide (22-30) mmol/L Anion Gap mmol/L BUN (7-17) mg/dL Creatinine (0.6-1.2) mg/dL Estimated GFR ml/min BUN/Creatinine Ratio % Glucose (65-100) mg/dL Lactic Acid (0.7-2.0) mmol/L Calcium (8.4-10.2) mg/dL Magnesium (1.7-2.3) mg/dL Total Bilirubin (0.1-1.2) mg/dL AST (5-40) units/L ALT (7-56) units/L Alkaline Phosphatase (35-129) units/L Ammonia (25-60) umol/L Total Creatine Kinase (30-135) units/L Troponin T (0.00-0.029) ng/mL Total Protein (6.3-8.2) g/dL Albumin (3.9-5) g/dL Albumin/Globulin Ratio % TSH 1.660 (0.270-4.200) mlU/mL Salicylates < 0.3 L (2.8-20.0) mg/dL Acetaminophen 5.0 L (10.0-30.0) ug/mL Plasma/Serum Alcohol (0-0.07) % 01/11/22 Range/Units 23:10 WBC (4.5-11.0) K/mm3 RBC (3.65-5.03) M/mm3 Hgb (10.1-14.3) gm/dl Hct (30.3-42.9) % MCV (79-97) fl MCH (28-32) pg MCHC (30-34) % RDW (13.2-15.2) % Plt Count (140-440) K/mm3 Lymph % (Auto) (13.4-35.0) % Bingham % (Auto) (0.0-7.3) % Eos % (Auto) (0.0-4.3) % Baso % (Auto) (0.0-1.8) % Lymph # (Auto) (1.2-5.4) K/mm3 Bingham # (Auto) (0.0-0.8) K/mm3 Eos # (Auto) (0.0-0.4) K/mm3 Baso # (Auto) (0.0-0.1) K/mm3 Seg Neutrophils % (40.0-70.0) % Seg Neutrophils # (1.8-7.7) K/mm3 PT (12.2-14.9) Sec. INR (0.87-1.13) APTT (24.2-36.6) Sec. Sodium (137-145) mmol/L Potassium (3.6-5.0) mmol/L Chloride (98-107) mmol/L Carbon Dioxide (22-30) mmol/L Anion Gap mmol/L BUN (7-17) mg/dL Creatinine (0.6-1.2) mg/dL Estimated GFR ml/min BUN/Creatinine Ratio % Glucose (65-100) mg/dL Lactic Acid (0.7-2.0) mmol/L Calcium (8.4-10.2) mg/dL Magnesium (1.7-2.3) mg/dL Total Bilirubin (0.1-1.2) mg/dL AST (5-40) units/L ALT (7-56) units/L Alkaline Phosphatase (35-129) units/L Ammonia (25-60) umol/L Total Creatine Kinase (30-135) units/L Troponin T (0.00-0.029) ng/mL Total Protein (6.3-8.2) g/dL Albumin (3.9-5) g/dL Albumin/Globulin Ratio % TSH (0.270-4.200) mlU/mL Salicylates (2.8-20.0) mg/dL Acetaminophen (10.0-30.0) ug/mL Plasma/Serum Alcohol < 0.01 (0-0.07) % - EKG Data -: EKG Interpreted by Mn EKG shows normal: sinus rhythm Rate: normal - EKG Data 01/12/22 00:34 The EKG is interpreted at 23: 18 Sinus rhythm, 88 bpm. There is a borderline rightward axis deviation, and an incomplete right bundle branch block. There is motion artifact. QTC is 427 ms. This is an abnormal EKG. This is not a STEMI. This appears to be unchanged from prior EKG from 06/26/2021 - Radiology Data Radiology results: pending, report reviewed, image reviewed CT ABDOMEN AND PELVIS WITHOUT CONTRAST INDICATION / CLINICAL INFORMATION: Abdominal distention, pain, not eating or drinking. TECHNIQUE: Axial CT images were obtained through the abdomen and pelvis without IV contrast. All CT scans at this location are performed using CT dose reduction for ALARA by means of automated exposure control. COMPARISON: None available. FINDINGS: LOWER CHEST: No significant abnormality of the imaged chest. LIVER: No significant abnormality. GALLBLADDER: No significant abnormality. BILE DUCTS: No significant abnormality. SPLEEN: No significant abnormality. PANCREAS: Not well visualized secondary to lack of intravenous contrast. No gross evidence of acute pathology. ADRENALS: No significant abnormality. RIGHT KIDNEY / URETER: Findings suggesting medullary nephrocalcinosis. No hydronephrosis. LEFT KIDNEY / URETER: Findings suggesting medullary nephrocalcinosis. Additional more focal calcification lower pole left kidney thought to reflect nonobstructing calyceal stone. This measures approximately 9 mm. STOMACH / DUODENUM / SMALL BOWEL: Stomach is grossly unremarkable. No small bowel obstruction. COLON: Large amount stool throughout the large bowel. Large fecal impaction. APPENDIX: Not identified PERITONEUM: No free air or free fluid are present within the abdomen or pelvis. LYMPH NODES: No significant adenopathy. AORTA / ARTERIES: No significant abnormality. IVC / VEINS: No significant abnormality. URINARY BLADDER: No significant abnormality. REPRODUCTIVE ORGANS: Possible small right ovarian cyst versus nonopacified bowel loop. ADDITIONAL ABDOMINAL/PELVIC FINDINGS: None. SKELETAL SYSTEM: No significant abnormality. IMPRESSION: 1. A large stool burden is present throughout the large bowel with large fecal impaction additionally present. Signer Name: Dagoberto Whatley II, MD Signed: 01/11/2022 11:06 PM Workstation Name: [id number] CT HEAD WITHOUT CONTRAST INDICATION / CLINICAL INFORMATION: Altered Mental Status. TECHNIQUE: CT of the head was performed without administration of intravenous contrast. All CT scans at this location are performed using CT dose reduction for ALARA by means of automated exposure control. COMPARISON: CT head 06/26/2021 FINDINGS: CEREBRAL PARENCHYMA: Generalized cortical and central atrophy. Periventricular regions of white matter hypoattenuation compatible with microvascular ischemia. HEMORRHAGE: None. EXTRA-AXIAL SPACES: Normal in size and morphology for the patient's age. VENTRICULAR SYSTEM: Normal in size and morphology for the patient's age. MIDLINE SHIFT / HERNIATION: None. CEREBELLUM / BRAINSTEM: No significant abnormality. ORBITS: Normal as visualized. SOFT TISSUES: No significant abnormality. SKULL: No significant abnormality. PARANASAL SINUSES / MASTOID AIR CELLS: Normal as visualized. ADDITIONAL FINDINGS: Bilateral deformities of the mandibular condyles compatible with chronic degenerative change subarticular cystic change is present. IMPRESSION: 1. No acute intracranial abnormality. Signer Name: Dagoberto Whatley II, MD Signed: 01/11/2022 11:04 PM Workstation Name: [id number] CHEST 1 VIEW INDICATION / CLINICAL INFORMATION: Altered Mental Status. COMPARISON: None available. FINDINGS: SUPPORT DEVICES: None. HEART / MEDIASTINUM: No significant abnormality. LUNGS / PLEURA: The lungs are clear. No pneumothorax. ADDITIONAL FINDINGS: No significant additional findings. IMPRESSION: 1. No active cardiopulmonary disease. Signer Name: Dagoberto Whatley II, MD Signed: 01/11/2022 11:20 PM Workstation Name: [id number] Critical care attestation.: If time is entered above; I have spent that time in minutes in the direct care of this critically ill patient, excluding procedure time. ED Disposition Clinical Impression: Constipation, Cerebral palsy, Abnormal computed tomography of abdomen and pelvis, Abnormal CT of brain, Bacteriuria with pyuria Disposition: 03 [facility] Is pt being admited?: No Does the pt Need Aspirin: No Condition: Good Instructions: Constipation, Adult, Abdominal Pain (ED) Additional Instructions: Patient is consuming applesauce in the emergency room, without difficulty, passed swallow screen, and is requesting pured foods. Recommend outpatient follow-up with registered dietitian to design diet that is accommodating to patient. Patient is found to have evidence of constipation today. Recommend that patient consume 4 to 6 cups of water per day, with plenty of fiber, vegetables and lean protein. Patient may take the prescribed lactulose and MiraLAX as needed for constipation. Patient had laboratory studies today, as well as CT scan abdomen pelvis, x-ray of the chest, and noncontrast CT scan of the brain. Emergent findings were not identified, however, nonemergent incidental abnormal findings were identified, which would require outpatient routine follow-up. Please have your primary care doctor contact the medical records department to obtain copies of laboratory studies radiology studies, and to follow-up on nonemergent incidental abnormal findings. Advance diet as tolerated. Please return to the emergency room right away with new pain, worsened pain, migration of pain, projectile vomiting, change in mental status, confusion, inability tolerate liquid feeds, new, worsened or different symptoms not present on the initial emergency room evaluation cultures were sent today, and results will be available in the next 3 to 5 days Please have your primary care doctor contact the medical records department to obtain culture results Prescriptions: Lactulose [Cephulac] 20 gm PO QDAY PRN 4 Days #100 ml PRN Reason: Constipation Nitrofurantoin Bingham/M-Cryst [Macrobid CAP] 100 mg PO Q12HR #13 capsule polyethylene glycoL 3350 [Miralax 3350] 17 gm PO QDAY #30 packet Referrals: ROD MOJICA MD [Primary Care Provider] - 3-5 Days
[2022-01-12 00:35] LABS: Bacteria,Urine 2+ /HPF (Negative); Bilirubin,Urine NEG (Negative); Blood,Urine SM (Negative); Color,Urine Yellow (Yellow); Mucus,Urine 1+ /HPF; Urobilinogen,Urine < 2.0 mg/dL (<2.0)
[2022-01-12 01:08] VITALS: BP 109/78
[2022-01-12] MEDS ORDERED: NITROFURANTOIN MONOHYD/M-CRYST 100 MG CAP PO ONE (01:25)
--- NOTE | 2022-01-12 09:21 | Electrocardiograph Report ---
[facility] Test Date: 2022-01-11 Test Time: 23:18:58 Pat Name: SHIVAM VYAS Department: Room: Gender: F Director Writing: JUAN : 1985 Requested By: MONTSE PIERCE Order Number: [id number] Reading MD: Jose Graf Measurements Intervals Howard Rate: 88 P: 81 AK: 171 QRS: 168 QRSD: 90 T: 42 QT: 352 QTc: 427 Interpretive Statements Sinus rhythm rad and lapfb Compared to ECG 06/26/2021 21:11:28 Electronically Signed On 01-12-2022 9:20:35 EST by Jose Graf
== END 2022-01-12 04:44 ==
LOC: ED 21:37
DX: K59.00 Constipation, unspecified (principal); K31.9 Disease of stomach and duodenum, unspecified
CPT/HCPCS: 36415; 70450; 71045; 74176; 80053; 81001; 82140; 82550; 83735; 84443; 84484; 85025; 85610; 85730; 87086; 93005; 96374; 96375; 99285; J2405; J3490; J7040; 80320; 87076; 87186; G0480